=== PATIENT | female | born 1960 | race Caucasian/White ===

== ENCOUNTER 2018-08-17 10:53 | Outpatient (CLI) | payer OTHER ==
[~2018-08-17 10:53] MED LIST: DELTASONE20 MG PO; PROVENTIL0.5 ML/2.5; ZANTAC150 M3 PO
== END 2018-08-17 11:00 | disposition home or self-care (01) ==
LOC: RAD 501 10:53
DX: J44.1 Chronic obstructive pulmonary disease with (acute) exacerbation (principal)

== ENCOUNTER 2024-09-22 07:29 | Outpatient (CLI) | payer OTHER | END 2024-09-22 07:35 | disposition home or self-care (01) | LOC: TOM 07:29 | PROVIDERS: ATTEND Internal Medicine Gastroenterology | DX: K56.609 Unspecified intestinal obstruction, unspecified as to partial versus complete obstruction (principal); K57.92 Diverticulitis of intestine, part unspecified, without perforation or abscess without bleeding; K59.00 Constipation, unspecified; C18.9 Malignant neoplasm of colon, unspecified; R19.5 Other fecal abnormalities ==

== ENCOUNTER 2025-02-08 07:00 | Day surgery (SDC) | payer OTHER ==
[2025-02-08] MEDS ORDERED: DIPHENHYDRAMINE HCL 50 MG/ML VIAL 1ML IV ONE (13:00)
[2025-02-08] MEDS ORDERED: fentaNYL CITRATE 50 MCG/ML AMPUL IV PUSH ONE (13:00)
[2025-02-08] MEDS ORDERED: ONDANSETRON HCL 2 MG/ML VIAL IV ONE (13:00)
[2025-02-08] MEDS ORDERED: MIDAZOLAM HCL 2 MG/2 ML VIAL IV ONE (13:00)
== END 2025-02-08 14:30 | disposition home or self-care (01) ==
LOC: CIR.AMB 07:00
PROVIDERS: ATTEND Colon & Rectal Surgery
DX: D12.2 Benign neoplasm of ascending colon (principal); K63.5 Polyp of colon; K57.30 Diverticulosis of large intestine without perforation or abscess without bleeding; Z12.11 Encounter for screening for malignant neoplasm of colon; K55.1 Chronic vascular disorders of intestine